=== PATIENT | female | born 1975 | race Caucasian/White ===

== ENCOUNTER 2018-05-08 17:28 | Inpatient (IN) | payer OTHER ==
[~2018-05-08] VITALS: Ht 162.6 cm; Wt 99.2 kg
[~2018-05-08 17:28] MED LIST: MOTRIN800 MG PO; NORCO 7.5/321 TABLET PO; VALIUM5 MG PO
[2018-05-08 18:20] LABS: INTER. NORMALIZED RATIO 1.2
[2018-05-08 18:22] LABS: ALBUMIN 4.3 g/dL (3.2-4.8); BASOPHIL (%) 0.3 % (0-1); CHLORIDE 108 mEq/L (99-109); EOSINOPHIL (%) 0.1 % (0-5); HEMATOCRIT 19.7 % (36.0-46.0); HEMOGLOBIN 5.2 G/DL (11.9-15.5); IMMATURE GRANULOCYTE (%) 0.3 % (0.0-0.7); LYMPHOCYTE (%) 23.7 % (15-42); LYMPHOCYTE COUNT 2.3 K/uL (1.0-2.8); MCH 16.7 PG (29.0-34.0); MCHC 26.4 G/DL (30.0-36.0); MCV 63.3 FL (83-99); MONOCYTE (%) 10.8 % (3-12); MONOCYTE COUNT 1.1 K/uL (0-0.8); NEUTROPHIL (%) 64.8 % (45-76); NEUTROPHIL COUNT 6.4 K/uL (1.8-6.4); NRBC (%) 0.5 /100 WBC (0-0); PLATELET COUNT 738 K/uL (156-360); POTASSIUM 3.8 mEq/L (3.7-5.4); PTT 25.3 SEC (25-37); RBC DIS.WIDTH-CV 20.2 % (11.8-14.6); RBC DIS.WIDTH-SD 43.8 % (39-53); RED BLOOD COUNT 3.11 M/uL (3.80-5.20); SODIUM 139 mEq/L (136-147); WHITE BLOOD COUNT 9.9 K/uL (4.1-10.2)
[2018-05-08 18:25] LABS: GLUCOSE 122 mg/dL (70-99); TOTAL PROTEIN 7.2 g/dL (6.4-8.3)
[2018-05-08 18:28] LABS: ALKALINE PHOSPHATASE 66 IU/L (3-129); CREATININE 0.8 mg/dL (0.6-1.3); GFR ESTIMATE (CALCULATED) > 59 mL/min/
[2018-05-08 18:29] LABS: UREA NITROGEN (BUN) 13 mg/dL (9-23)
[2018-05-08 18:30] LABS: AST (GOT) 17 IU/L (2-34); DIRECT BILIRUBIN 0.3 mg/dL (0.0-0.3)
[2018-05-08 18:31] LABS: ALT (GPT) 16 IU/L (3-49); TROP-I INTERPRETATION NEGATIVE; TROPONIN-I 0.03 ng/mL (0.0-0.30)
[2018-05-08] MEDS ORDERED: TYLENOL EXTRA500 MG PO (19:36)
[2018-05-08 21:20] VITALS: BP 125/55
[2018-05-08 21:42] VITALS: BP 123/69
[2018-05-08 22:42] VITALS: BP 117/82
[2018-05-08 23:25] VITALS: BP 139/87
[2018-05-09] VITALS (12 sets, daily range): BP systolic 110–153; BP diastolic 57–75
[2018-05-09 08:19] LABS: HEMATOCRIT 26.9 % (36.0-46.0); MCHC 29.7 G/DL (30.0-36.0); NRBC (%) 0.6 /100 WBC (0-0); PLAT.SUFFICIENCY INCREASED; RBC DIS.WIDTH-CV 24.2 % (11.8-14.6); RBC DIS.WIDTH-SD 59.7 % (39-53); WHITE BLOOD COUNT 6.6 K/uL (4.1-10.2)
[2018-05-09 08:20] LABS: MCV 70.6 FL (83-99); RED BLOOD COUNT 3.81 M/uL (3.80-5.20)
[2018-05-09 08:23] LABS: PLATELET COUNT 455 K/uL (156-360)
[2018-05-09] MEDS ORDERED: NIFEREX-1501 CAPSULE PO (23:10)
[2018-05-09] MEDS ORDERED: PHILLIPS' LAXA100 MG PO (23:10)
[2018-05-10 04:30] VITALS: BP 137/71
[2018-05-10 06:59] VITALS: BP 127/82
[2018-05-10 12:11] VITALS: BP 126/72
[2018-05-10] MEDS ORDERED: CALAN SR,COVER120 MG PO (13:22)
== END 2018-05-10 13:56 | disposition home or self-care (01) | DRG 309 ==
LOC: EME 17:28 → EDOF 22:29 → 4EAST 22:29 → ENRESERV 22:33 → 4EAST 05-09 00:09 → ENRESERV 05-09 11:19 → 4EAST 05-09 11:20
PROVIDERS: Emergency Medicine; Internal Medicine
PROC: 30233N1 Transfusion of Nonautologous Red Blood Cells into Peripheral Vein, Percutaneous Approach (ICD-10-PCS; principal; 2018-05-08)
DX: I47.1 Supraventricular tachycardia (principal); N92.0 Excessive and frequent menstruation with regular cycle; D50.0 Iron deficiency anemia secondary to blood loss (chronic); D25.9 Leiomyoma of uterus, unspecified; R79.89 Other specified abnormal findings of blood chemistry; N13.30 Unspecified hydronephrosis; I51.7 Cardiomegaly; R79.1 Abnormal coagulation profile; E66.9 Obesity, unspecified; Z68.37 Body mass index [BMI] 37.0-37.9, adult; Z80.41 Family history of malignant neoplasm of ovary
CPT/HCPCS: 71045; 71275; 74177; 76856; 80048; 80076; 82728; 84443; 84484; 85025; 85027; 85379; 85610; 85730; 86850; 86900; 86901; 86920; 93005; 93306; 99281; 99285; J0153; J1756; J7030; J7050; P9016